=== PATIENT | male | born 1960 | race African-American/Black ===

== ENCOUNTER 2021-01-20 09:00 | Emergency (ER) | payer BC, OTHER ==
[2021-01-20] MEDS ORDERED: Sodium Chloride 0.9% 10 ML Syringe FLUSH PRN (09:14)
--- NOTE | 2021-01-20 09:29 | EDM.PDOC ---
ED HPI GENERAL MEDICAL PROBLEM - General Chief Complaint: Chest Pain Stated Complaint: SHARP PAIN UPPER TORSO Time Seen by Provider: 01/20/21 09:25 Source of Information: Reports: Patient History Limitations: Reports: No Limitations - History of Present Illness INITIAL COMMENTS - FREE TEXT/NARRATIVE: Patient presents with c/o lower left chest pain indicated at the lower left cos tovertebral angle. 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 Repetitive motion. Had pain for about 15 minutes. No longer complaining of pain. No medications, generally healthy, no prior [place]. Is a smoker. Onset: Today, Sudden Duration: Resolved Prior to Arrival Location: Reports: Chest Quality: Reports: Sharp, Stabbing Severity: Moderate Improves with: Reports: None Worsens with: Reports: None Associated Symptoms: Reports: No Other Symptoms - Related Data Allergies Allergy/AdvReac Type Severity Reaction Status Date / Time No Known Allergies Allergy Verified 01/20/21 09:17 Home Meds: Home Meds . [No Known Home Meds] 01/20/21 [History] Past Medical History - Past Health History Medical/Surgical History: Denies Medical/Surgical History Social & Family History - Tobacco Use Tobacco Use Status *Q: Current Every Day Tobacco User Years of Tobacco use: 28 Packs/Tins Daily: 0.5 ED ROS GENERAL - Review of Systems Review Of Systems: See Below Constitutional: Reports: No Symptoms HEENT: Reports: No Symptoms Respiratory: Reports: No Symptoms Cardiovascular: Reports: Chest Pain Endocrine: Reports: No Symptoms GI/Abdominal: Reports: No Symptoms : Reports: No Symptoms Musculoskeletal: Reports: No Symptoms Skin: Reports: No Symptoms Neurological: Reports: No Symptoms Psychiatric: Reports: No Symptoms Hematologic/Lymphatic: Reports: No Symptoms Immunologic: Reports: No Symptoms ED EXAM, GENERAL - Physical Exam Exam: See Below Exam Limited By: No Limitations General Appearance: Alert, WD/WN, No Apparent Distress Ears: Normal External Exam, Normal Canal, Hearing Grossly Normal, Normal TMs Ear Exam: Bilateral Ear: Auricle Normal, Canal Normal, TM normal Nose: Normal Inspection, Normal Mucosa, No Blood Throat/Mouth: Normal Inspection, Normal Lips, Normal Teeth, Normal Gums, Normal Oropharynx, Normal Voice, No Airway Compromise Head: Atraumatic, Normocephalic Neck: Normal Inspection, Supple, Non-Tender, Full Range of Motion Respiratory/Chest: No Respiratory Distress, Lungs Clear, Normal Breath Sounds, No Accessory Muscle Use, Chest Non-Tender Cardiovascular: Normal Peripheral Pulses, Regular Rate, Rhythm, No Edema, No Gallop, No JVD, No Murmur, No Rub GI/Abdominal: Normal Bowel Sounds, Soft, Non-Tender, No Organomegaly, No Distention, No Abnormal Bruit, No Mass (Male) Exam: Deferred Rectal (Males) Exam: Deferred Back Exam: Normal Inspection, Full Range of Motion, NT Extremities: Normal Inspection, Normal Range of Motion, Non-Tender, Normal Capillary Refill, No Pedal Edema Neurological: Alert, Oriented, CN II-XII Intact, Normal Cognition, Normal Gait, Normal Reflexes, No Motor/Sensory Deficits Psychiatric: Normal Affect, Normal Mood Skin Exam: Warm, Dry, Intact, Normal Color, No Rash Lymphatic: No Adenopathy #1 Interpretation EKG Date: 01/20/21 Time: 09:00 Rhythm: NSR Rate (Beats/Min): 57 [place]: Normal P-Wave: Present QRS: Normal ST-T: Other (early replorization) CA/PQ Interval: prolonged CA interval Comparison: NA - No Prior EKG EKG Interpretation Comments: Sinus rhythm with PAC's Course - Vital Signs Last Recorded V/S: Last Vital Signs Temp 36.9 C 01/20/21 09:00 Pulse 64 01/20/21 09:00 Resp 16 01/20/21 09:00 BP 120/79 01/20/21 09:00 Pulse Ox 99 01/20/21 09:00 - Orders/Labs/Meds Orders: Active Orders 24 hr Category Date Time Status Chest 2V [CR] Stat Exams 01/20/21 09:22 Ordered Chest w Cont [CT] Stat Exams 01/20/21 09:22 Ordered COMPREHENSIVE METABOLIC PN,CMP [CHEM] Stat Lab 01/20/21 09:22 Received CREATINE KINASE,CK [CHEM] Stat Lab 01/20/21 09:22 Received D Dimer [D-DIMER QUANTITATIVE] [COAG] Stat Lab 01/20/21 09:22 Received INR,PT,PROTHROMBIN TIME [COAG] Stat Lab 01/20/21 09:22 Received PRO B-TYPE NATRIUR PEPT,BNPPRO [CHEM] Stat Lab 01/20/21 09:22 Received TROPONIN I HIGH SENSITIVITY [CHEM] Stat Lab 01/20/21 09:22 Received Sodium Chloride 0.9% [Saline Flush] Med 01/20/21 09:14 Active 10 ml FLUSH ASDIRECTED PRN Saline Lock Insert [OM.PC] Routine Oth 01/20/21 09:14 Ordered Medication Orders Sodium Chloride (Sodium Chloride 0.9% 10 Ml Syringe) 10 ml FLUSH ASDIRECTED PRN PRN Reason: Keep Vein Open Labs: Laboratory Tests 01/20/21 Range/Units 09:22 WBC 6.0 (4.0-10.0) x10^3/uL RBC 4.52 (4.5-6.0) x10^6/uL Hgb 13.6 L (14.0-18.0) g/dL Hct 40.2 (40.0-52.0) % MCV 88.9 (78.0-93.0) fL MCH 30.1 (26.0-32.0) pg MCHC 33.8 (32.0-36.0) g/dL RDW Coeff of [place] 12.4 (10.0-15.0) % Plt Count 188 (130-400) x10^3/uL Immature Gran % (Auto) 0.20 (0.00-0.43) % Neut % (Auto) 50.3 (50.0-80.0) % Lymph % (Auto) 38.9 (25.0-50.0) % Casey % (Auto) 8.8 (2.0-11.0) % Eos % (Auto) 1.3 (0.0-4.0) % Baso % (Auto) 0.5 (0.2-1.2) % Neut # (Auto) 3.0 (1.8-7.7) x10^3/uL Lymph # (Auto) 2.3 (1.0-4.8) x10^3/uL Casey # (Auto) 0.5 (0.0-0.8) x10^3/uL Eos # (Auto) 0.1 (0.0-0.5) x10^3/uL Baso # (Auto) 0.0 (0.0-0.2) x10^3/uL Immature Gran # (Auto) 0.01 (0.00-0.07) x10^3/uL Meds: Medications Generic Name Dose Route Start Last Admin Trade Name Freq PRN Reason Stop Dose Admin Sodium Chloride 10 ml 01/20/21 09:14 Sodium Chloride 0.9% 10 Ml Syringe FLUSH ASDIRECTED PRN Keep Vein Open - Radiology Interpretation Free Text/Narrative:: Chest x-ray as well as CT of chest negative for acute process. CK elevated. Troponin normal. Rest of bloodwork normal. Departure - Departure Time of Disposition: 11:28 Disposition: Home, Self-Care 01 Condition: Good Clinical Impression: Atypical chest pain Instructions: Chest Wall Pain, [id number] Forms: ED Department Discharge Additional Instructions: Follow up with Dr Narvaez Your Creatine Kinase level was high at over 800. This should be redrawn with her and if still elevated, additional work up may be needed. Drink plenty of fluids. Heart blood work was normal, CT of the chest showed no PE or aortic tear/dissection. Chest pain likely muscular in nature Please call if you have any additional questions or concerns. Sepsis Event Note (ED) - Focused Exam Vital Signs: Vital Signs Temp Pulse Resp BP Pulse Ox 01/20/21 09:00 36.9 C 64 16 120/79 99 - My Orders Last 24 Hours: My Active Orders 01/20/21 09:14 Sodium Chloride 0.9% [Saline Flush] 10 ml FLUSH ASDIRECTED PRN Saline Lock Insert [OM.PC] Routine 01/20/21 09:22 Chest 2V [CR] Stat Chest w Cont [CT] Stat COMPREHENSIVE METABOLIC PN,CMP [CHEM] Stat CREATINE KINASE,CK [CHEM] Stat D Dimer [D-DIMER QUANTITATIVE] [COAG] Stat INR,PT,PROTHROMBIN TIME [COAG] Stat PRO B-TYPE NATRIUR PEPT,BNPPRO [CHEM] Stat TROPONIN I HIGH SENSITIVITY [CHEM] Stat - Assessment/Plan Last 24 Hours: My Active Orders 01/20/21 09:14 Sodium Chloride 0.9% [Saline Flush] 10 ml FLUSH ASDIRECTED PRN Saline Lock Insert [OM.PC] Routine 01/20/21 09:22 Chest 2V [CR] Stat Chest w Cont [CT] Stat COMPREHENSIVE METABOLIC PN,CMP [CHEM] Stat CREATINE KINASE,CK [CHEM] Stat D Dimer [D-DIMER QUANTITATIVE] [COAG] Stat INR,PT,PROTHROMBIN TIME [COAG] Stat PRO B-TYPE NATRIUR PEPT,BNPPRO [CHEM] Stat TROPONIN I HIGH SENSITIVITY [CHEM] Stat
[2021-01-20 09:57] LABS: CHLORIDE,CL 106 mmol/L (98-107); SODIUM,NA 142 mmol/L (136-145)
--- NOTE | 2021-01-20 10:08 | CR ---
[id number] RAD/RAD Chest PA And Lateral EXAM: RAD Chest PA And Lateral INDICATION: CHEST PAIN. COMPARISON: None. DISCUSSION: Cardiomediastinal silhouette is normal in size and contour. No infiltrate, effusion, pneumothorax, or edema. Pulmonary hyperinflation. IMPRESSION: No acute cardiopulmonary abnormality. Leland Cuevas DO 01/20/21 1007 Thank you for allowing us to participate in the care of your patient.
[2021-01-20] MEDS ORDERED: Sodium Chloride 0.9% 1,000 ML IV ONE (10:46)
--- NOTE | 2021-01-20 11:06 | CT ---
[id number] CT/CT Chest W IV Exam: CT Chest W IV Clinical Data: CHEST PAIN COMPARISON: NO PREVIOUS SIMILAR EXAM IS AVAILABLE FINDINGS: There are no pulmonary emboli The great vessels are intact There is centrilobular emphysema There is no infiltrate or effusion There is no mediastinal mass or adenopathy There is no adrenal mass IMPRESSION: NO PULMONARY EMBOLUS NO ANEURYSM OR DISSECTION OF THORACIC AORTA Lex Bean MD 01/20/21 0384 Thank you for allowing us to participate in the care of your patient.
[2021-01-20] MEDS ORDERED: Iopamidol 612 MG/ML 100 ML Bottle IVPUSH ONE (11:29)
== END 2021-01-20 11:28 | disposition home or self-care (01) ==
LOC: VM.ED 09:00
DX: R07.89 Other chest pain (principal); Z72.0 Tobacco use
CPT/HCPCS: 71046; 71260; 80053; 81003; 82550; 83880; 84484; 85025; 85379; 85610; 93005; 93010; 99284; 99285-25; J7030; Q9967